=== PATIENT | male | born 1960 | race African-American/Black ===

== ENCOUNTER 2017-02-12 23:53 | Emergency (ER) | payer OTHER ==
[2017-02-12 23:58] VITALS: TEMP 98.5; BMI 25.7
--- NOTE | 2017-02-13 01:09 | PDOC ---
History of Present Illness - General History Source: Patient Exam Limitations: No Limitations - History of Present Illness Initial Comments: 02/13/17 01:29 EST The patient is a 56-year-old male, with a significant past medical history of diabetes (on Metformin), who presents to the ED with 3 days of pain and redness to left third digit and pain in his right shoulder and arm. He denies any recent trauma to his finger or arm. The pain in the finger and arm is worsened with movement. On exam patient states that the pain in his right arm radiates across his chest. He is also complaining of diarrhea and cough. The patient denies any fever, chills, nausea, vomiting, or abdominal pain. <Manjula Johns - Last Filed: 02/13/17 01:29 EST> <Padmini Gtz - Last Filed: 02/13/17 01:42 EST> <Jenny Almaguer - Last Filed: 02/14/17 01:16> - General Chief Complaint: Respiratory Stated Complaint: PAIN Time Seen by Provider: 02/13/17 01:08 EST Past History <Manjula Johns - Last Filed: 02/13/17 01:29 EST> - Past Medical History COPD: No Diabetes: Yes - Suicide/Smoking/Psychosocial Hx Smoking History: Current some day smoker Have you smoked in the past 12 months: Yes Number of Cigarettes Smoked Daily: 1 If you are a former smoker, when did you quit?: 2 WKS Information on smoking cessation initiated: No Hx Alcohol Use: No Drug/Substance Use Hx: No Substance Use Type: None <Padmini Gtz - Last Filed: 02/13/17 01:42 EST> <Jenny Almaguer - Last Filed: 02/14/17 01:16> - Past Medical History Allergies/Adverse Reactions: Allergies Allergy/AdvReac Type Severity Reaction Status Date / Time No Known Allergies Allergy Verified 02/12/17 23:58 Home Medications: Ambulatory Orders Metformin HCl 500 mg PO BID #30 tablet 04/14/15 Aspirin [ASA -] 81 mg PO DAILY 02/13/17 Atorvastatin Ca [Lipitor] 0 mg PO HS 02/13/17 Clindamycin [Cleocin -] 300 mg PO Q6HPO #28 capsule 02/13/17 Glipizide 0 mg PO DAILY 02/13/17 Review of Systems - Review of Systems Able to Perform ROS?: Yes Comments:: 02/13/17 01:30 EST GENERAL/CONSTITUTIONAL: No fever or chills. No weakness. HEAD, EYES, EARS, NOSE AND THROAT: No change in vision. No ear pain or discharge. No sore throat. CARDIOVASCULAR: (+)chest pain No shortness of breath. RESPIRATORY: (+)cough. No wheezing, or hemoptysis. GASTROINTESTINAL: (+)Diarrhea. No nausea, vomiting, or constipation. GENITOURINARY: No dysuria, frequency, or change in urination. MUSCULOSKELETAL: Pain in left 3rd digit, pain in left arm. No neck or back pain. SKIN: No rash NEUROLOGIC: No headache, vertigo, loss of consciousness, or change in strength/ sensation. ENDOCRINE: No increased thirst. No abnormal weight change. HEMATOLOGIC/LYMPHATIC: No anemia, easy bleeding, or history of blood clots. ALLERGIC/IMMUNOLOGIC: No hives or skin allergy. <Manjula Johns - Last Filed: 02/13/17 01:29 EST> *Physical Exam - Vital Signs Last Vital Signs Temp Pulse Resp BP Pulse Ox 98.5 F 103 H 20 137/87 99 02/12/17 23:55 02/12/17 23:55 02/12/17 23:55 02/12/17 23:55 02/12/17 23:55 - Physical Exam Comments: 02/13/17 01:31 EST GENERAL: Awake, alert, and fully oriented, in no acute distress HEAD: No signs of trauma EYES: PERRLA, EOMI, sclera anicteric, conjunctiva clear ENT: Auricles normal inspection, hearing grossly normal, nares patent, oropharynx clear without exudates. Moist mucosa NECK: Normal ROM, supple, no lymphadenopathy, JVD, or masses LUNGS: Breath sounds equal, clear to auscultation bilaterally. No wheezes, and no crackles HEART: Regular rate and rhythm, normal S1 and S2, no murmurs, rubs or gallops ABDOMEN: Soft, nontender, normoactive bowel sounds. No guarding, no rebound. No masses EXTREMITIES: Normal range of motion. No clubbing or cyanosis. No cords. NEUROLOGICAL: Cranial nerves II through XII grossly intact. Normal speech, normal gait SKIN: (+)Small amount of redness of DIP joint of left 3rd digit. Warm, Dry, normal turgor. <Manjula Johns - Last Filed: 02/13/17 01:29 EST> - Vital Signs Last Vital Signs Temp Pulse Resp BP Pulse Ox 98.5 F 103 H 20 137/87 99 02/12/17 23:55 02/12/17 23:55 02/12/17 23:55 02/12/17 23:55 02/12/17 23:55 <Padmini Gtz - Last Filed: 02/13/17 01:42 EST> - Vital Signs Last Vital Signs Temp Pulse Resp BP Pulse Ox 98.5 F 103 H 20 137/87 99 02/12/17 23:55 02/12/17 23:55 02/12/17 23:55 02/12/17 23:55 02/12/17 23:55 <Jenny Almaguer - Last Filed: 02/14/17 01:16> ED Treatment Course - LABORATORY CBC & Chemistry Diagram: 02/13/17 01:50 EST 02/13/17 01:50 EST - ADDITIONAL ORDERS Additional order review: Laboratory Results 02/13/17 01:50 EST Sodium 132 L Potassium 4.7 Chloride 97 L Carbon Dioxide 26 Anion Gap 9 BUN 17 D Creatinine 1.4 H Creat Clearance w eGFR 52.81 Random Glucose 451 H* Calcium 8.8 Total Bilirubin 0.3 D AST 20 D ALT 71 D Alkaline Phosphatase 121 H Creatine Kinase 111 Troponin I 0.04 Total Protein 7.3 Albumin 3.4 02/13/17 01:50 EST RBC 4.47 MCV 88.3 MCHC 32.6 RDW 12.9 MPV 8.7 Neutrophils % 74.1 Lymphocytes % 17.2 D Monocytes % 7.6 Eosinophils % 0.8 D Basophils % 0.3 - Medications Given in the ED: ED Medications Discontinued Medications Generic Name Dose Route Start Last Admin Trade Name Freq PRN Reason Stop Dose Admin Clindamycin Phosphate 50 mls @ 100 mls/hr 02/13/17 01:57 EST 02/13/17 02:19 Cleocin 600 Mg Premix Ivpb - IVPB 02/13/17 02:26 100 mls/hr ONCE ONE Administration Insulin Human Regular 10 units 02/13/17 03:07 02/13/17 03:25 Novolin R Vial *For Ivpush Or Iv Drip Only* IVPUSH 02/13/17 03:08 10 units ONCE ONE Administration Ketorolac Tromethamine 60 mg 02/13/17 01:19 EST 02/13/17 01:52 EST Toradol Injection - IM 02/13/17 01:20 EST 60 mg ONCE ONE Administration Sodium Chloride 1,000 ml 02/13/17 03:07 02/13/17 03:20 Normal Saline - IV 02/13/17 03:08 1,000 ml ONCE ONE Administration <Jenny Almaguer - Last Filed: 02/14/17 01:16> Medical Decision Making - Medical Decision Making 02/13/17 01:42 EST Pt presents to the ED complaining of pain and discomfort to his L 3rd digit, distal to the DIP. Very small area of induration without fluctuance seen on exam. Also complaining of two days of constant, diffuse pain across both shoulders that is worse with movement of the arms. Denies shortness of breath. History of DM. On exam, patient has full ROM of the affected digit and both shoulders, with very small area of induration on the finger. May represent small area of cellulitis. Given history of DM, will treat with antibiotics. Shoulder pain is unlikely to be infectious, patient denies history of trauma, and is extremely atypical for cardiac disease. EKG is normal. Will check cardiac enzymes to rule out NE. Will likely discharge home with PO antibiotics for cellulitis if labs so no evidence of serious infection. <Padmini Gtz - Last Filed: 02/13/17 01:42 EST> - Medical Decision Making 02/14/17 01:15 Pt signed out to AM attending. Though we hydrated the patient and provided him with a dose of IV clinda and insulin to take care of his FS of 425+, pt still hadn't had his XRAY finger, so he was signed out to the day ER doctor. <Jenny Almaguer - Last Filed: 02/14/17 01:16> *DC/Admit/Observation/Transfer - Attestations Scribe Attestion: 02/13/17 01:33 EST Documentation prepared by Manjula Johns, acting as medical record administrator for Padmini Gtz MD. <Manjula Johns - Last Filed: 02/13/17 01:29 EST> <Padmini Gtz - Last Filed: 02/13/17 01:42 EST> - Discharge Dispostion Admit: No <Jenny Almaguer - Last Filed: 02/14/17 01:16> Diagnosis at time of Disposition: Cellulitis, finger - Discharge Dispostion Disposition: HOME Condition at time of disposition: Stable - Prescriptions Prescriptions: Clindamycin [Cleocin -] 300 mg PO Q6HPO #28 capsule - Referrals Referrals: Jodi Betancourt MD [Primary Care Provider] - - Patient Instructions Printed Discharge Instructions: Cellulitis Additional Instructions: take clindamycin as prescribed. follow up with your regular doctor. return for any problems or concerns. you should follow up with your primary doctor regarding your blood sugars as they were elevated today.
[2017-02-13] MEDS ORDERED: KETOROLAC TROMETHAMINE 60 MG/2 ML VIAL IM ONE (01:19)
[2017-02-13] MEDS ORDERED: KETOROLAC TROMETHAMINE 60 MG/2 ML VIAL ONE (01:36)
[2017-02-13] MEDS ORDERED: CLINDAMYCIN 600MG PREMIX IVPB 50 ML IVPB ONE ×2 (01:57→02:13)
[2017-02-13 02:00] LABS: BASOPHIL 0.3 % (0-2.0); EOSINOPHIL 0.8 % (0-4.5); MCH 28.8 pg (25.7-33.7); MCHC 32.6 g/dl (32.0-35.9); MEAN CELL VOLUME 88.3 fl (80-96); MEAN PLT VOLUME 8.7 fl (7.5-11.1); NEUTROPHILS 74.1 % (42.8-82.8); PLATELET COUNT 255 K/MM3 (134-434); RDW 12.9 % (11.9-15.9); WHITE BLOOD COUNT 9.5 K/mm3 (4.0-10.0)
[2017-02-13 02:24] LABS: ALBUMIN 3.4 g/dl (3.4-5.0); ANION GAP 9 (8-16); BILIRUBIN,TOTAL 0.3 mg/dL (0.2-1.0); CALCIUM 8.8 mg/dL (8.5-10.1); CO2 26 mmol/L (21-32); CPK 111 IU/L (39-308); CREATININE 1.4 mg/dL (0.7-1.3); SGOT/AST 20 U/L (15-37); SGPT/ALT 71 U/L (12-78); TOT PROT 7.3 g/dl (6.4-8.2)
[2017-02-13 02:26] LABS: ALK PHOS 121 U/L (45-117); TROPONIN I 0.04 ng/ml (0.00-0.05)
[2017-02-13 02:31] LABS: GLUCOSE,RANDOM 451 mg/dL (74-106)
[2017-02-13] MEDS ORDERED: INSULIN REGULAR HUMAN 100 UNITS/ML *VIAL IVPUSH ONE (03:07)
[2017-02-13] MEDS ORDERED: SODIUM CHLORIDE 0.9% 500 ML INFUS.BAG IV ONE (03:07)
[2017-02-13] MEDS ORDERED: INSULIN REGULAR HUMAN 100 UNITS/ML *VIAL ONE (03:22)
--- NOTE | 2017-02-13 10:02 | PDOC ---
*Physical Exam - Vital Signs Last Vital Signs Temp Pulse Resp BP Pulse Ox 98.5 F 90 18 126/54 99 02/13/17 08:48 02/13/17 08:48 02/13/17 08:48 02/13/17 08:48 02/13/17 08:48 - Physical Exam General Appearance: Yes: Nourished ED Treatment Course - LABORATORY CBC & Chemistry Diagram: 02/13/17 01:50 EST 02/13/17 01:50 EST - ADDITIONAL ORDERS Additional order review: Laboratory Results 02/13/17 01:50 EST Sodium 132 L Potassium 4.7 Chloride 97 L Carbon Dioxide 26 Anion Gap 9 BUN 17 D Creatinine 1.4 H Creat Clearance w eGFR 52.81 Random Glucose 451 H* Calcium 8.8 Total Bilirubin 0.3 D AST 20 D ALT 71 D Alkaline Phosphatase 121 H Creatine Kinase 111 Troponin I 0.04 Total Protein 7.3 Albumin 3.4 02/13/17 01:50 EST RBC 4.47 MCV 88.3 MCHC 32.6 RDW 12.9 MPV 8.7 Neutrophils % 74.1 Lymphocytes % 17.2 D Monocytes % 7.6 Eosinophils % 0.8 D Basophils % 0.3 - RADIOLOGY Radiology Studies Ordered: Category Date Time Status SHOULDER-RIGHT [RAD] Stat Radiology 02/13/17 08:34 Completed - Medications Given in the ED: ED Medications Discontinued Medications Generic Name Dose Route Start Last Admin Trade Name Freq PRN Reason Stop Dose Admin Clindamycin Phosphate 50 mls @ 100 mls/hr 02/13/17 01:57 EST 02/13/17 02:19 Cleocin 600 Mg Premix Ivpb - IVPB 02/13/17 02:26 100 mls/hr ONCE ONE Administration Insulin Human Regular 10 units 02/13/17 03:07 02/13/17 03:25 Novolin R Vial *For Ivpush Or Iv Drip Only* IVPUSH 02/13/17 03:08 10 units ONCE ONE Administration Ketorolac Tromethamine 60 mg 02/13/17 01:19 EST 02/13/17 01:52 EST Toradol Injection - IM 02/13/17 01:20 EST 60 mg ONCE ONE Administration Sodium Chloride 1,000 ml 02/13/17 03:07 02/13/17 03:20 Normal Saline - IV 02/13/17 03:08 1,000 ml ONCE ONE Administration Medical Decision Making - Medical Decision Making 02/13/17 10:00 pt signed out to me. awaiting xray finger, shoulder. sugars elevated 450. was given insulin prior to my shift. improved to 200's. dc home. xray unremarkable. *DC/Admit/Observation/Transfer Diagnosis at time of Disposition: Cellulitis, finger - Discharge Dispostion Disposition: HOME Condition at time of disposition: Stable - Prescriptions Prescriptions: Clindamycin [Cleocin -] 300 mg PO Q6HPO #28 capsule - Referrals Referrals: Jodi Betancourt MD [Primary Care Provider] - - Patient Instructions Printed Discharge Instructions: Cellulitis Additional Instructions: take clindamycin as prescribed. follow up with your regular doctor. return for any problems or concerns. you should follow up with your primary doctor regarding your blood sugars as they were elevated today. - Post Discharge Activity
[2017-02-13 10:19] VITALS: BP 118/74; PULSE 85
--- NOTE | 2017-02-16 14:05 | EKG ---
Test Reason : Blood Pressure : / mmHG Vent. Rate : 092 BPM Atrial Rate : 092 BPM P-R Int : 170 ms QRS Dur : 092 ms QT Int : 356 ms P-R-T Axes : 064 -14 075 degrees QTc Int : 440 ms NORMAL SINUS RHYTHM POSSIBLE LEFT ATRIAL ENLARGEMENT T WAVE ABNORMALITY, CONSIDER LATERAL ISCHEMIA ABNORMAL ECG NO PREVIOUS ECGS AVAILABLE Confirmed by ABBE MIRANDA MD ([id number]) on 02/16/2017 2:04:47 PM Referred By: Confirmed By:ABBE MIRANDA MD
== END 2017-02-13 10:23 | disposition home or self-care (01) ==
LOC: JER 23:53
PROC: 3E0233Z Introduction of Anti-inflammatory into Muscle, Percutaneous Approach (ICD-10-PCS; principal; 2017-02-12)
PROC: 3E03329 Introduction of Other Anti-infective into Peripheral Vein, Percutaneous Approach (ICD-10-PCS; 2017-02-12)
PROC: 3E033VG Introduction of Insulin into Peripheral Vein, Percutaneous Approach (ICD-10-PCS; 2017-02-12)
DX: L03.012 Cellulitis of left finger (principal); M25.512 Pain in left shoulder; R05 Cough; E11.9 Type 2 diabetes mellitus without complications; Z79.84 Long term (current) use of oral hypoglycemic drugs
CPT/HCPCS: 36415; 73030-TC-RT; 73140-TC-LT; 80053; 82550; 84484; 85025; 93005; 93010; 96365; 96372; 96375; 99285-25

== ENCOUNTER 2017-04-04 16:11 | Emergency (ER) | payer OTHER ==
[2017-04-04 16:15] VITALS: BP 151/88; PULSE 91; TEMP 98.7
--- NOTE | 2017-04-04 17:09 | PDOC ---
History of Present Illness <Danielle Davenport - Last Filed: 04/04/17 18:33> - General History Source: Patient Exam Limitations: No Limitations - History of Present Illness Initial Comments: 04/04/17 20:25 The patient is a 56 year old male with history of diabetes who presents to the ED complaining of several months of chronic right lower back pain. He states his pain is intermittent, radiating to the groin, improved with 100 mg of Ibuprofen. He denies any dysuria or hematuria. He denies fever or chills. He states he was worked up by his PCP who found proteinuria on his UA. Came in today because he wanted a diagnosis. Denies CP, SOB, abd pain, N/V/D, focal weakness or numbness, urine/stool incontinence or retention. <Leela Duff - Last Filed: 04/04/17 20:28> - General Chief Complaint: Pain, Acute Stated Complaint: PAIN, ACUTE Time Seen by Provider: 04/04/17 16:59 Past History - Past Medical History COPD: No Diabetes: Yes - Suicide/Smoking/Psychosocial Hx Smoking History: Current some day smoker Have you smoked in the past 12 months: Yes Number of Cigarettes Smoked Daily: 1 If you are a former smoker, when did you quit?: 2 WKS Information on smoking cessation initiated: No Hx Alcohol Use: No Drug/Substance Use Hx: No Substance Use Type: None <Danielle Davenport - Last Filed: 04/04/17 18:33> <Leela Duff - Last Filed: 04/04/17 20:28> - Past Medical History Allergies/Adverse Reactions: Allergies Allergy/AdvReac Type Severity Reaction Status Date / Time No Known Allergies Allergy Verified 04/04/17 18:34 Home Medications: Ambulatory Orders Metformin HCl 500 mg PO BID #30 tablet 04/14/15 Aspirin [ASA -] 81 mg PO DAILY 02/13/17 Atorvastatin Ca [Lipitor] 10 mg PO HS 02/13/17 Glipizide 5 mg PO DAILY 02/13/17 Cyclobenzaprine HCl [Flexeril 10 mg] 10 mg PO BID PRN #28 tablet 04/04/17 Lisinopril 10 mg PO DAILY 04/04/17 Naproxen 500 mg PO BID #28 tablet 04/04/17 Review of Systems - Review of Systems Able to Perform ROS?: Yes Comments:: 04/04/17 20:27 GENERAL/CONSTITUTIONAL: No fever or chills. No weakness. HEAD, EYES, EARS, NOSE AND THROAT: No change in vision. No ear pain or discharge. No sore throat. GASTROINTESTINAL: No nausea, vomiting, diarrhea or constipation. GENITOURINARY: +Right flank pain x several months. No dysuria, frequency, or change in urination. CARDIOVASCULAR: No chest pain or shortness of breath. RESPIRATORY: No cough, wheezing, or hemoptysis. MUSCULOSKELETAL: No joint or muscle swelling or pain. No neck or back pain. SKIN: No rash NEUROLOGIC: No headache, vertigo, loss of consciousness, or change in strength/ sensation. ENDOCRINE: No increased thirst. No abnormal weight change. HEMATOLOGIC/LYMPHATIC: No anemia, easy bleeding, or history of blood clots. ALLERGIC/IMMUNOLOGIC: No hives or skin allergy. <Leela Duff - Last Filed: 04/04/17 20:28> *Physical Exam - Vital Signs Last Vital Signs Temp Pulse Resp BP Pulse Ox 98.7 F 91 H 18 151/88 99 04/04/17 16:13 04/04/17 16:13 04/04/17 16:13 04/04/17 16:13 04/04/17 16:13 <Danielle Davenport - Last Filed: 04/04/17 18:33> - Vital Signs Last Vital Signs Temp Pulse Resp BP Pulse Ox 98.7 F 91 H 18 151/88 99 04/04/17 16:13 04/04/17 16:13 04/04/17 16:13 04/04/17 16:13 04/04/17 16:13 - Physical Exam Comments: 04/04/17 20:27 GENERAL: Awake, alert, and fully oriented, in no acute distress HEAD: No signs of trauma EYES: PERRLA, EOMI, sclera anicteric, conjunctiva clear ENT: Auricles normal inspection, hearing grossly normal, nares patent, oropharynx clear without exudates. Moist mucosa NECK: Normal ROM, supple, no lymphadenopathy, JVD, or masses LUNGS: Breath sounds equal, clear to auscultation bilaterally. No wheezes, and no crackles HEART: Regular rate and rhythm, normal S1 and S2, no murmurs, rubs or gallops ABDOMEN: Soft, nontender, normoactive bowel sounds. No guarding, no rebound. No masses BACK: Right iliac fossa ttp, no midline cervical, thoracic, lumbar ttp EXTREMITIES: Normal range of motion, no edema. No clubbing or cyanosis. No cords, erythema, or tenderness BACK: No midline spinal tenderness in cervical/thoracic/lumbar region NEUROLOGICAL: Normal speech, cranial nerves intact, negative pronator drift, 5/ 5 strength in all 4 extremities, normal sensation to light touch in all 4 extremities, normal cerebellar exam, normal gait, normal reflexes and tone SKIN: Warm, Dry, normal turgor, no rashes or lesions noted. <Leeal Duff - Last Filed: 04/04/17 20:28> Medical Decision Making - Medical Decision Making 04/04/17 17:01 56yo M hx DM p/w 5 months of R flank pain. Pain is worse with certain movements. Pt presented today because he wanted to get to the bottom of it. Vitals wnl. Exam with R sided iliac crest ttp. Pain is likely musculoskeletal but ddx also includes renal colic vs colitis. Will obtain labs, UA, and CTAP. 04/04/17 17:37 Nurse entered to draw labs on patient, nurse ran out calling for security. Pt physically aggressive towards nurse, came out of the room and making threats to nurse stating "I will find you." Security at the bedside. PD called. Medically, pt does not appear to have life threatining condition at this time. Presenting symptoms have been present for months, pt here for a diagnosis. Pt has a PMD he has seen for these symptoms and can follow up with. Since there is no life threatening condition, and pt has made verbal and physical threats to the nurse, pt to be escorted out by security and PD. <Danielle Davenport - Last Filed: 04/04/17 18:33> *DC/Admit/Observation/Transfer - Discharge Dispostion Admit: No - Attestations Physician Attestion: 04/04/17 18:34 I, Dr. Danielle Davenport MD, attest that this document has been prepared under my direction and personally reviewed by me in its entirety. I further attest, that it accurately reflects all work, treatment, procedures and medical decision -making performed by me. <Danielle Davenport - Last Filed: 04/04/17 18:33> - Attestations Scribe Attestion: 04/04/17 20:28 Documentation prepared by Leela Duff, acting as medical office scheduler for Danielle Davenport MD. <Leela Duff - Last Filed: 04/04/17 20:28> Diagnosis at time of Disposition: Back pain Qualifiers: Back pain location: low back pain Chronicity: chronic Back pain laterality: right Sciatica presence: with sciatica Sciatica laterality: sciatica of right side Qualified Code(s): M54.41 - Lumbago with sciatica, right side - Discharge Dispostion Disposition: HOME Condition at time of disposition: Stable - Referrals Referrals: Jodi Betancourt MD [Primary Care Provider] - - Patient Instructions - Post Discharge Activity
== END 2017-04-04 17:30 | disposition home or self-care (01) ==
LOC: JER 16:11
DX: M54.41 Lumbago with sciatica, right side (principal); E11.9 Type 2 diabetes mellitus without complications; F17.210 Nicotine dependence, cigarettes, uncomplicated; Z79.84 Long term (current) use of oral hypoglycemic drugs
CPT/HCPCS: 99281-25

== ENCOUNTER 2017-04-04 18:19 | Emergency (ER) | payer OTHER ==
--- NOTE | 2017-04-04 18:23 | PDOC ---
History of Present Illness <Jammie Alonso - Last Filed: 04/04/17 19:02> - General History Source: Patient Exam Limitations: No Limitations - History of Present Illness Initial Comments: 04/04/17 19:37 The patient is a 56-year-old male, with a significant past medical history of diabetes (on Metformin), who presents to the ED with a few months of right- sided lower back pain radiating down his right leg and into his groin area. He was first seen at [facility] and had to be escorted out by PD for threatening a nurse. Pt reports to the ED today because his pain progressively worsened in the last few days. He saw his PCP 2 weeks ago and had a workup done ; protein was noted in his urine. He reports having diabetic neuropathy in both lower extremities but this is not new. The patient denies any fever, chills, nausea, vomiting, diarrhea, or abdominal pain. He denies any dysuria, hematuria, frequency, urgency, or hesitancy. <Manjula Johns - Last Filed: 04/04/17 19:45> - General Chief Complaint: Back Pain Stated Complaint: RIGHT LOWER BACK PAIN RADIATES DOWN RIGHT LEG Time Seen by Provider: 04/04/17 18:22 Past History - Past Medical History COPD: No Diabetes: Yes - Suicide/Smoking/Psychosocial Hx Smoking History: Current some day smoker Have you smoked in the past 12 months: Yes Number of Cigarettes Smoked Daily: 1 If you are a former smoker, when did you quit?: 2 WKS Hx Alcohol Use: No Drug/Substance Use Hx: No Substance Use Type: None <Jammie Alonso - Last Filed: 04/04/17 19:02> <Manjula Johns - Last Filed: 04/04/17 19:45> - Past Medical History Allergies/Adverse Reactions: Allergies Allergy/AdvReac Type Severity Reaction Status Date / Time No Known Allergies Allergy Verified 04/04/17 18:34 Home Medications: Ambulatory Orders Metformin HCl 500 mg PO BID #30 tablet 04/14/15 Aspirin [ASA -] 81 mg PO DAILY 02/13/17 Atorvastatin Ca [Lipitor] 10 mg PO HS 02/13/17 Glipizide 5 mg PO DAILY 02/13/17 Lisinopril 10 mg PO DAILY 04/04/17 Review of Systems - Review of Systems Able to Perform ROS?: Yes Comments:: 04/04/17 19:37 GENERAL/CONSTITUTIONAL: No fever or chills. No weakness. HEAD, EYES, EARS, NOSE AND THROAT: No change in vision. No ear pain or discharge. No sore throat. CARDIOVASCULAR: No chest pain or shortness of breath. RESPIRATORY: No cough, wheezing, or hemoptysis. GASTROINTESTINAL: No nausea, vomiting, diarrhea or constipation. GENITOURINARY: No dysuria, frequency, or change in urination. MUSCULOSKELETAL: (+)right-sided lower back pain with radiation down right leg. No joint swelling or pain. No neck pain. SKIN: No rash NEUROLOGIC: No headache, vertigo, loss of consciousness, or change in strength/ sensation. ENDOCRINE: No increased thirst. No abnormal weight change. HEMATOLOGIC/LYMPHATIC: No anemia, easy bleeding, or history of blood clots. ALLERGIC/IMMUNOLOGIC: No hives or skin allergy. <Manjula Johns - Last Filed: 04/04/17 19:45> *Physical Exam - Vital Signs Last Vital Signs Temp Pulse Resp BP Pulse Ox 98.9 F 76 16 153/94 100 04/04/17 18:22 04/04/17 18:22 04/04/17 18:22 04/04/17 18:22 04/04/17 18:22 - Physical Exam Comments: 04/04/17 19:39 GENERAL: Awake, alert, and fully oriented, in no acute distress HEAD: No signs of trauma EYES: PERRLA, EOMI, sclera anicteric, conjunctiva clear ENT: Auricles normal inspection, hearing grossly normal, nares patent, oropharynx clear without exudates. Moist mucosa NECK: Normal ROM, supple, no lymphadenopathy, JVD, or masses LUNGS: Breath sounds equal, clear to auscultation bilaterally. No wheezes, and no crackles HEART: Regular rate and rhythm, normal S1 and S2, no murmurs, rubs or gallops ABDOMEN: Soft, nontender, normoactive bowel sounds. No guarding, no rebound. No masses MSK: (+)Paraspinal tenderness on right side at lower lumbar spine. Acute pinpoint onset. No step-off EXTREMITIES: (+)Positive leg raise at the right. Normal range of motion, no edema. No clubbing or cyanosis. No cords, erythema, or tenderness. NEUROLOGICAL: Cranial nerves II through XII grossly intact. Normal speech, normal gait. Sensation is intact. No signs of cauda equina. SKIN: Warm, Dry, normal turgor, no rashes or lesions noted <Manjula Johns - Last Filed: 04/04/17 19:45> ED Treatment Course - ADDITIONAL ORDERS Additional order review: Laboratory Results 04/04/17 19:04 Urine Color Dk yellow Urine Appearance Clear Urine pH 5.0 Ur Specific [place] >= 1.030 H Urine Protein 2+ H Urine Glucose (UA) 2+ H Urine Ketones Trace Urine Blood Negative Urine Nitrite Negative Urine Bilirubin Negative Urine Urobilinogen 0.2 Ur Leukocyte Esterase Negative Urine RBC 5-10 Urine WBC 2-5 Ur Epithelial Cells Few Amorphous Urates Few Urine Bacteria Few - Medications Given in the ED: ED Medications Discontinued Medications Generic Name Dose Route Start Last Admin Trade Name Freq PRN Reason Stop Dose Admin Cyclobenzaprine HCl 10 mg 04/04/17 19:01 04/04/17 19:11 Flexeril - PO 04/04/17 19:02 10 mg ONCE ONE Administration Ketorolac Tromethamine 60 mg 04/04/17 19:01 04/04/17 19:11 Toradol Injection - IM 04/04/17 19:02 60 mg ONCE ONE Administration <Manjula Johns - Last Filed: 04/04/17 19:45> Medical Decision Making - Medical Decision Making 04/04/17 19:02 a/p: 56yo male with lbp -hx of proteinuria -hx of DM -suspect MSK pain with paraspinal ttp and +straight leg raise -no signs of caude equina -will check an xray will give toradol and flexeril and reassess <Jammie Alonso - Last Filed: 04/04/17 19:02> *DC/Admit/Observation/Transfer - Attestations Physician Attestion: 04/04/17 19:03 I, Dr. Jammie Alonso, DO, attest that this document has been prepared under my direction and personally reviewed by me in its entirety. I further attest, that it accurately reflects all work, treatment, procedures and medical decision -making performed by me. <Jammie Alonso - Last Filed: 04/04/17 19:02> - Attestations Scribe Attestion: 04/04/17 19:44 Documentation prepared by Manjula Johns, acting as medical administrator for Annamaria Prabhakar MD. <Manjula Johns - Last Filed: 04/04/17 19:45> Diagnosis at time of Disposition: Back pain - Discharge Dispostion Condition at time of disposition: Stable
[2017-04-04] MEDS ORDERED: CYCLOBENZAPRINE HCL 10 MG TABLET (FP) PO ONE (19:01)
[2017-04-04] MEDS ORDERED: KETOROLAC TROMETHAMINE 60 MG/2 ML VIAL IM ONE (19:01)
[2017-04-04 19:04] VITALS: BP 153/94; PULSE 76; TEMP 98.9; BMI 25.7
[2017-04-04] MEDS ORDERED: CYCLOBENZAPRINE HCL 10 MG TABLET (FP) ONE (19:07)
[2017-04-04] MEDS ORDERED: KETOROLAC TROMETHAMINE 60 MG/2 ML VIAL ONE (19:07)
[2017-04-04 19:17] LABS: URINE APPEARANCE Clear; URINE BILIRUBIN Negative (NEGATIVE); URINE BLOOD Negative (NEGATIVE); URINE GLUCOSE (UA) 2+ (NEGATIVE); URINE KETONE Trace (NEGATIVE); URINE LEUK ESTERASE Negative (NEGATIVE); URINE NITRITE Negative (NEGATIVE); URINE UROBILINOGEN 0.2 (0.2-1.0)
[2017-04-04 19:18] LABS: URINE COLOR DK YELLOW; URINE PROTEIN 2+ (NEGATIVE)
[2017-04-04 19:32] LABS: URINE BACTERIA FEW /hpf (NEGATIVE)
--- NOTE | 2017-04-04 20:02 | PDOC ---
*Physical Exam - Vital Signs Last Vital Signs Temp Pulse Resp BP Pulse Ox 98.9 F 76 16 153/94 100 04/04/17 18:22 04/04/17 18:22 04/04/17 18:22 04/04/17 18:22 04/04/17 18:22 ED Treatment Course - ADDITIONAL ORDERS Additional order review: Laboratory Results 04/04/17 19:04 Urine Color Dk yellow Urine Appearance Clear Urine pH 5.0 Ur Specific Dilliner >= 1.030 H Urine Protein 2+ H Urine Glucose (UA) 2+ H Urine Ketones Trace Urine Blood Negative Urine Nitrite Negative Urine Bilirubin Negative Urine Urobilinogen 0.2 Ur Leukocyte Esterase Negative Urine RBC 5-10 Urine WBC 2-5 Ur Epithelial Cells Few Amorphous Urates Few Urine Bacteria Few - Medications Given in the ED: ED Medications Discontinued Medications Generic Name Dose Route Start Last Admin Trade Name Ramses PRN Reason Stop Dose Admin Cyclobenzaprine HCl 10 mg 04/04/17 19:01 04/04/17 19:11 Flexeril - PO 04/04/17 19:02 10 mg ONCE ONE Administration Ketorolac Tromethamine 60 mg 04/04/17 19:01 04/04/17 19:11 Toradol Injection - IM 04/04/17 19:02 60 mg ONCE ONE Administration Progress Note - Progress Note Progress Note: This is a 56-year-old male whose care was transferred to [facility] at [address] Alonso. Patient has a long history of chronic low back pain. Patient comes in today complaining of acute exacerbation of his chronic low back pain radiating down his right leg. Patient has seen a doctor in the past does have a neurologist and an orthopedist and has an appointment next week for follow-up. X-rays were sent and patient was given Toradol and Flexeril. Lumbar sacral x-rays no acute fracture noted acute pathology Assessment and plan: This is a 56-year-old male with low back pain/sciatica. Patient feels better after medications. Patient was given results of his x-ray and told to keep his appointment with his doctors. In addition patient asked for a orthopedist closer so was given our orthopedist here at the hospital who he can follow-up with Prescriptions for Naprosyn and Flexeril were sent to patient's pharmacy *DC/Admit/Observation/Transfer Diagnosis at time of Disposition: Back pain Qualifiers: Back pain location: low back pain Chronicity: chronic Back pain laterality: right Sciatica presence: with sciatica Sciatica laterality: sciatica of right side Qualified Code(s): M54.41 - Lumbago with sciatica, right side - Discharge Dispostion Disposition: HOME Condition at time of disposition: Stable - Prescriptions Prescriptions: Cyclobenzaprine HCl [Flexeril 10 mg] 10 mg PO BID PRN #28 tablet PRN Reason: Back Pain Naproxen 500 mg PO BID #28 tablet - Referrals - Patient Instructions Additional Instructions: For the pain take Naprosyn 1 tablet twice a day with food don't take on an empty stomach. In addition to that for muscle spasm take Flexeril one tablet twice a day it will make you drowsy so don't try to work or do anything that requires your concentration while you take it. Follow-up with an orthopedist if he needed an orthopedist call Dr. Noonan at [phone] tomorrow morning for an appointment. Return to the emergency department immediately with ANY new, persistent or worsening symptoms. Continue any medications as previously prescribed by your physician. You should follow up with your primary doctor as soon as possible regarding today's emergency department visit. . Please make sure your doctor reviews the results of your emergency evaluation. Thank you for coming to the Emergency Department today for your care. It was a pleasure to see you today. Please note that your evaluation is INCOMPLETE until you follow-up with your doctor. - Post Discharge Activity
== END 2017-04-04 20:08 | disposition home or self-care (01) ==
LOC: FER 18:19
PROC: 3E0233Z Introduction of Anti-inflammatory into Muscle, Percutaneous Approach (ICD-10-PCS; principal; 2017-04-04)
DX: M54.9 Dorsalgia, unspecified (principal); F17.210 Nicotine dependence, cigarettes, uncomplicated; E11.9 Type 2 diabetes mellitus without complications; Z79.84 Long term (current) use of oral hypoglycemic drugs
CPT/HCPCS: 72100-TC; 81003; 81015; 99282-25

== ENCOUNTER 2017-05-02 20:44 | Emergency (ER) | payer OTHER ==
[2017-05-02 20:51] VITALS: BP 139/78; PULSE 98; TEMP 98; BMI 25.7
--- NOTE | 2017-05-02 21:05 | PDOC ---
History of Present Illness - General History Source: Patient Exam Limitations: No Limitations <JesusbonnyAnnamaria Copeland I - Last Filed: 05/02/17 21:34> - History of Present Illness Initial Comments: 05/02/17 21:41 56 y.o male with significant past medical history of NIDDM, HTN, and sciatica, who presents to the emergency room complaining of right sided lower back pain that radiates to his right groin and right posterior thigh. The patient states that the pain is worse at night when he is sleeping on his back. He notes that he has experienced this pain in the past for which he was given naproxen and flexeril that provided significant relief. He states that he never followed up with an orthopedist. Denies bladder or bowel changes. He denies urinary symptoms. Denies fever, chills, nausea, vomiting. PAST SURGICAL HISTORY: no significant history FAMILY HISTORY: no pertinent history SOCIAL HISTORY: Pt lives with family and is employed. MEDICATIONS: reviewed ALLERGIES: As per nursing notes Review of systems General: No fevers or chills, no weakness, no weight loss HEENT: No change in vision. No sore throat, No ear pain Cardiovascular: No chest pain or shortness of breath Respiratory:No cough, or wheezing. Gastrointestinal: No nausea, vomiting, diarrhea or constipation, No rectal bleeding Genitourinary: No dysuria, hematuria, or frequency Musculoskeletal: +right lower back pain that radiates to his groin and down the posterior thigh. Neurologic: No headache, vertigo, dizziness or loss of consciousness Psychiatric: No depression Skin: No rashes or easy bruising Endocrine: No increased thirst or abnormal weight change Allergic: No skin or latex allergy All other systems reviewed and normal Physical Exam GENERAL: The patient is awake, alert, and fully oriented, in no acute distress. HEAD: Normal with no signs of trauma. EYES: Pupils equal, round and reactive to light, extraocular movements intact, sclera anicteric, conjunctiva clear. BACK: There is moderate tenderness to palpation over the right sciatic notch with ttp over the right hip and upper leg area.There is no tenderness over the lumbar and sacral area. EXTREMITIES: Normal range of motion, no edema. NEUROLOGICAL: Normal speech, normal gait. PSYCH: Normal mood, normal affect. SKIN: Warm, Dry, normal turgor, no rashes or lesions noted. <Sharmaine Gaytan - Last Filed: 05/02/17 21:42> - General Chief Complaint: Back Pain Stated Complaint: BACK PAIN Time Seen by Provider: 05/02/17 21:05 Past History - Past Medical History COPD: No Diabetes: Yes HTN: Yes Hypercholesterolemia: Yes - Suicide/Smoking/Psychosocial Hx Smoking History: Current some day smoker Have you smoked in the past 12 months: Yes Number of Cigarettes Smoked Daily: 2 If you are a former smoker, when did you quit?: 2 WKS Information on smoking cessation initiated: Yes 'Breaking Loose' booklet given: 05/02/17 Hx Alcohol Use: No Drug/Substance Use Hx: No Substance Use Type: None <Annamaria Prabhakar I - Last Filed: 05/02/17 21:34> <Sharmaine Gaytan - Last Filed: 05/02/17 21:42> - Past Medical History Allergies/Adverse Reactions: Allergies Allergy/AdvReac Type Severity Reaction Status Date / Time No Known Allergies Allergy Verified 05/02/17 20:45 Home Medications: Ambulatory Orders Aspirin [ASA -] 81 mg PO DAILY 02/13/17 Atorvastatin Ca [Lipitor] 10 mg PO HS 02/13/17 Glipizide mg PO DAILY 02/13/17 Cyclobenzaprine HCl [Flexeril 10 mg] 10 mg PO BID PRN #28 tablet 04/04/17 Lisinopril 10 mg PO DAILY 04/04/17 Naproxen 500 mg PO BID #28 tablet 04/04/17 Enalapril Maleate [Vasotec -] 10 mg PO DAILY 05/02/17 Metformin HCl 1,000 mg PO BID 05/02/17 *Physical Exam - Vital Signs Last Vital Signs Temp Pulse Resp BP Pulse Ox 98 F 98 H 18 139/78 100 05/02/17 20:45 05/02/17 20:45 05/02/17 20:45 05/02/17 20:45 05/02/17 20:45 <Annamaria Prabhakar I - Last Filed: 05/02/17 21:34> - Vital Signs Last Vital Signs Temp Pulse Resp BP Pulse Ox 98 F 98 H 18 139/78 100 05/02/17 20:45 05/02/17 20:45 05/02/17 20:45 05/02/17 20:45 05/02/17 20:45 <Sharmaine Gaytan - Last Filed: 05/02/17 21:42> *DC/Admit/Observation/Transfer - Discharge Dispostion Admit: No <Annamaria Prabhakar I - Last Filed: 05/02/17 21:34> <Sharmaine Gaytan - Last Filed: 05/02/17 21:42> Diagnosis at time of Disposition: Sciatica of right side - Discharge Dispostion Condition at time of disposition: Stable - Patient Instructions Additional Instructions: Is important that you take an anti-inflammatory either take the Motrin or the Naprosyn but U do not need to take both.. In addition that take the Flexeril especially before bedtime which will help relax and sleep better. Make sure you sleep in the position that we discussed which was on your side with your hips flexed knees bent in a pillow between her legs this is the best position for sciatica and will give you the most relief. Put a pillow between behind her back so you don't roll over on your back as that will make the pain worse. Follow-up with an orthopedist Dr. Gallardo at [phone], call his office in the morning for an appointment. Return to the emergency department immediately with ANY new, persistent or worsening symptoms. Continue any medications as previously prescribed by your physician. You should follow up with your primary doctor as soon as possible regarding today's emergency department visit. . Please make sure your doctor reviews the results of your emergency evaluation. Thank you for coming to the Emergency Department today for your care. It was a pleasure to see you today. Please note that your evaluation is INCOMPLETE until you follow-up with your doctor.
[2017-05-02] MEDS ORDERED: KETOROLAC TROMETHAMINE 60 MG/2 ML VIAL IM ONE (21:35)
[2017-05-02] MEDS ORDERED: KETOROLAC TROMETHAMINE 60 MG/2 ML VIAL ONE (21:49)
== END 2017-05-02 21:54 | disposition home or self-care (01) ==
LOC: FER 20:44
PROC: 3E0233Z Introduction of Anti-inflammatory into Muscle, Percutaneous Approach (ICD-10-PCS; principal; 2017-05-02)
DX: M54.31 Sciatica, right side (principal); F17.210 Nicotine dependence, cigarettes, uncomplicated; E11.9 Type 2 diabetes mellitus without complications; I10 Essential (primary) hypertension; E78.00 Pure hypercholesterolemia, unspecified
CPT/HCPCS: 96372; 99281-25

== ENCOUNTER 2020-09-03 12:45 | Emergency (ER) | payer OTHER ==
[2020-09-03 13:05] VITALS: PULSE 78; BMI 27.1
[2020-09-03] MEDS ORDERED: SODIUM CHLORIDE 0.9% 500 ML INFUS.BAG IV ONE (13:56)
[2020-09-03 15:05] LABS: VENOUS BASE EXCESS 0.2 mmol/L (-2-2); VENOUS PCO2 51.2 mmHg (38-52); VENOUS PH 7.336 (7.310-7.410)
[2020-09-03 15:06] LABS: BASO % 1.5 % (0-2.0); EOS % 0.2 % (0-4.5); HEMOGLOBIN 12.1 GM/dL (11.7-16.9); LYMPH % 19.4 % (8-40); MCH 28.9 pg (25.7-33.7); MCHC 32.8 g/dl (32.0-35.9); MEAN PLT VOLUME 9.3 fl (7.5-11.1); MONO % 6.3 % (3.8-10.2); NEUT % 72.6 % (42.8-82.8); PLATELET COUNT 268 K/MM3 (134-434); RDW 13.4 % (11.9-15.9); WHITE BLOOD COUNT 9.1 K/mm3 (4.0-10.0)
[2020-09-03 15:09] LABS: URINE APPEARANCE CLEAR; URINE BILIRUBIN NEGATIVE (NEGATIVE); URINE COLOR YELLOW; URINE GLUCOSE (UA) 3+ (NEGATIVE); URINE KETONE NEGATIVE (NEGATIVE); URINE LEUK ESTERASE NEGATIVE (NEGATIVE); URINE NITRITE NEGATIVE (NEGATIVE); URINE PROTEIN NEGATIVE (NEGATIVE); URINE UROBILINOGEN 0.2 mg/dL (0.2-1.0)
[2020-09-03 15:26] LABS: CALCIUM 8.9 mg/dL (8.5-10.1)
[2020-09-03 15:27] LABS: ALBUMIN 3.7 g/dl (3.4-5.0); BLOOD UREA NITROGEN 20.8 mg/dL (7-18)
[2020-09-03 15:30] LABS: CREATININE 1.3 mg/dL (0.55-1.3)
[2020-09-03 15:32] LABS: BILIRUBIN,TOTAL 0.3 mg/dL (0.2-1); TOT PROT 7.5 g/dl (6.4-8.2)
[2020-09-03 17:05] VITALS: BP 151/81; TEMP 98.2
== END 2020-09-03 17:06 | disposition home or self-care (01) ==
LOC: JER 12:45
DX: R20.2 Paresthesia of skin (principal); R73.9 Hyperglycemia, unspecified
CPT/HCPCS: 36415; 70450-TC; 80053; 81003; 82010; 82803; 82962; 85025; 87086; 93005; 93010; 99285-25

== ENCOUNTER 2022-04-01 04:24 | Day surgery (SDC) | payer OTHER ==
[2022-03-29 16:12] VITALS: BMI 27.5
[2022-04-01 12:26] VITALS: TEMP 98
[2022-04-01 14:21] VITALS: BP 112/76; PULSE 68; RESP 18
== END 2022-04-01 14:15 | disposition home or self-care (01) ==
LOC: JASU-ENDO 04:24
PROVIDERS: ATTEND Internal Medicine Gastroenterology
PROC: 0DJD8ZZ Inspection of Lower Intestinal Tract, Via Natural or Artificial Opening Endoscopic (ICD-10-PCS; principal; 2022-04-01 10:30)
DX: Z12.11 Encounter for screening for malignant neoplasm of colon (principal)
CPT/HCPCS: 82962

== ENCOUNTER 2023-12-28 08:46 | Inpatient (IN) | payer OTHER ==
[2023-12-28 09:42] VITALS: BMI 25.7
[2023-12-28] MEDS ORDERED: ONDANSETRON 4 MG/2 ML VIAL ONE (10:03)
[2023-12-28] MEDS ORDERED: ACETAMINOPHEN INJECTION 100 ML ONE ×2 (10:03→19:51)
[2023-12-28] MEDS ORDERED: FAMOTIDINE 20 MG/50 ML IVPB 20 MG/50 ML MG IVPB ONE (10:04)
[2023-12-28] MEDS: ACETAMINOPHEN 1000 MG/100 ML BAG IVPB ONE (10:14)
[2023-12-28] MEDS: FAMOTIDINE 20 MG/50 ML IVPB 20 MG/50 ML MG IVPB ONE (10:14)
[2023-12-28] MEDS: ONDANSETRON 4 MG/2 ML VIAL IVPUSH ONE (10:14)
[2023-12-28] MEDS: SODIUM CHLORIDE 1,000 ML IV STA ×2 (10:21→11:50)
[2023-12-28 10:55] LABS: VENOUS BASE EXCESS 1.3 mmol/L (-2-2); VENOUS O2 SATURATION 35.4 % (70-80); VENOUS PCO2 43.1 mmHg (38-52); VENOUS PH 7.403 (7.310-7.410)
[2023-12-28 10:59] LABS: BASO % 0.6 % (0-2.0); LYMPH % 5.9 % (8-40); MCH 27.7 pg (25.7-33.7); MCHC 32.5 g/dl (32.0-35.9); MEAN CELL VOLUME 85.3 fl (80-96); MEAN PLT VOLUME 9.5 fl (7.5-11.1); NEUT % 83.5 % (42.8-82.8); PLATELET COUNT 271 10^3/uL (134-434); RBC 3.99 M/mm3 (4.00-5.60); RDW 13.6 % (11.9-15.9); WHITE BLOOD COUNT 15.2 K/mm3 (4.0-10.0)
[2023-12-28 11:02] LABS: INR 1.02 (0.83-1.09); PROTHROMBIN TIME (PATIENT) 11.7 SEC (9.7-13.0)
[2023-12-28 11:03] LABS: EPI CELLS >36 /uL (0-25.1); HYALINE CASTS 5 /uL (0-3.1); PH,URINE 5.5 (5.0-8.0); URINE APPEARANCE TURBID; URINE BILIRUBIN NEGATIVE (NEGATIVE); URINE COLOR YELLOW; URINE GLUCOSE (UA) 3+ (NEGATIVE); URINE KETONE 1+ (NEGATIVE); URINE LEUK ESTERASE NEGATIVE (NEGATIVE); URINE NITRITE NEGATIVE (NEGATIVE); URINE PROTEIN 3+ (NEGATIVE)
[2023-12-28 11:05] LABS: ACTIVATED PTT 34.4 SECONDS (25.2-36.5)
[2023-12-28 11:13] LABS: POTASSIUM 5.9 mmol/L (3.5-5.1)
[2023-12-28 11:15] LABS: ALBUMIN 2.8 g/dl (3.4-5.0); BLOOD UREA NITROGEN 41.2 mg/dL (7-18)
[2023-12-28 11:18] LABS: CREATININE 1.8 mg/dL (0.55-1.3)
[2023-12-28 11:20] LABS: BILIRUBIN,TOTAL 1.2 mg/dL (0.2-1); TOT PROT 7.7 g/dl (6.4-8.2)
[2023-12-28] MEDS ORDERED: CEFTRIAXONE 1 GM/50 ML BAG ONE (12:09)
[2023-12-28] MEDS ORDERED: AZITHROMYCIN IVPB 500 MG/250 ML BAG IVPB ONE (12:09)
[2023-12-28 12:10] LABS: URINE RBC 32 /uL (0-23.9)
[2023-12-28 12:11] LABS: URINE BACTERIA 4 /uL (0-1359); URINE WBC 367 /uL (0-25.8)
[2023-12-28] MEDS: CEFTRIAXONE 1,000 MG in DEXTROSE 5%-WATER - 50 ML IVPB ONE (12:21)
[2023-12-28] MEDS: AZITHROMYCIN IVPB 500 MG in DEXTROSE 5%-WATER - 250 ML IVPB ONE (13:06)
[2023-12-28 14:49] LABS: POTASSIUM 5.2 mmol/L (3.5-5.1)
[2023-12-28 14:51] LABS: BLOOD UREA NITROGEN 39.7 mg/dL (7-18)
[2023-12-28] MEDS ORDERED: ONDANSETRON 4 MG/2 ML VIAL IVPUSH PRN (14:51)
[2023-12-28] MEDS: chlorproMAZINE HCL 25 MG TABLET PO ONE (14:52)
[2023-12-28 14:54] LABS: CREATININE 1.6 mg/dL (0.55-1.3)
[2023-12-28] MEDS ORDERED: METOCLOPRAMIDE HCL INJECTION 10 MG/2 ML VIAL ONE (16:44)
[2023-12-28] MEDS ORDERED: PANTOPRAZOLE SODIUM 40 MG/100 ML BAG IVPB ONE (16:44)
[2023-12-28] MEDS: METOCLOPRAMIDE HCL INJECTION 10 MG/2 ML VIAL IVPUSH ONE (17:02)
[2023-12-28] MEDS: LACTATED RINGERS SOLUTION 1,000 ML/1,000 ML INFUS.BAG IV SCH (17:02)
[2023-12-28] MEDS: PANTOPRAZOLE SODIUM 40 MG VIAL IVPUSH SCH (17:02)
[2023-12-28] MEDS: INSULIN ASPART SLIDING SCALE (NOVOLOG) 1 VIAL SQ SCH (17:05)
[2023-12-28 17:10] LABS: BILIRUBIN,DIRECT 0.2 mg/dL (0.0-0.2)
[2023-12-28] MEDS: ACETAMINOPHEN 1000 MG/100 ML BAG IVPB PRN (20:02)
[2023-12-28] MEDS: HEPARIN NA (PORCINE) 5,000 UNITS/ML 1ML VIAL SQ SCH (21:08)
[2023-12-29] MEDS: METOCLOPRAMIDE HCL 10 MG TABLET (FP) PO ONE ×2 (00:36→20:44)
[2023-12-29] MEDS ORDERED: LACTATED RINGERS SOLUTION 1,000 ML/1,000 ML INFUS.BAG IV SCH (08:45)
[2023-12-29 10:05] LABS: BASO % 0.6 % (0-2.0); EOS % 0.2 % (0-4.5); HEMATOCRIT 28.7 % (35.4-49); HEMOGLOBIN 9.7 GM/dL (11.7-16.9); LYMPH % 10.4 % (8-40); MCH 28.3 pg (25.7-33.7); MCHC 33.7 g/dl (32.0-35.9); MEAN CELL VOLUME 83.9 fl (80-96); MONO % 10.5 % (3.8-10.2); NEUT % 78.3 % (42.8-82.8); PLATELET COUNT 294 10^3/uL (134-434); RBC 3.43 M/mm3 (4.00-5.60); RDW 13.7 % (11.9-15.9); WHITE BLOOD COUNT 12.2 K/mm3 (4.0-10.0)
[2023-12-29] MEDS: CEFTRIAXONE 1 GM in DEXTROSE 5%-WATER - 50 ML IVPB SCH (10:20)
[2023-12-29 10:25] LABS: POTASSIUM 4.4 mmol/L (3.5-5.1)
[2023-12-29 10:30] LABS: BLOOD UREA NITROGEN 34.1 mg/dL (7-18); CALCIUM 8.6 mg/dL (8.5-10.1)
[2023-12-29] MEDS: AZITHROMYCIN IVPB 500 MG/250 ML BAG IVPB SCH (10:30)
[2023-12-29 10:33] LABS: CREATININE 1.4 mg/dL (0.55-1.3)
[2023-12-29 10:39] LABS: ALBUMIN 2.5 g/dl (3.4-5.0)
[2023-12-29 10:42] LABS: BILIRUBIN,DIRECT 0.3 mg/dL (0.0-0.2)
[2023-12-29 10:44] LABS: BILIRUBIN,TOTAL 0.8 mg/dL (0.2-1); TOT PROT 6.7 g/dl (6.4-8.2)
[2023-12-29] MEDS: ASPIRIN 81 MG CHEWABLE TABLETS PO SCH (13:14)
[2023-12-29] MEDS: amLODIPine BESYLATE 5 MG TABLET (FP) PO SCH (13:14)
[2023-12-29] MEDS: LISINOPRIL 10 MG TABLET PO SCH (13:14)
[2023-12-29] MEDS: glipiZIDE 5 MG TABLET (FP) PO SCH (14:30)
[2023-12-29] MEDS: EMPAGLIFLOZIN (JARDIANCE) 10 MG TABLET PO SCH (15:10)
[2023-12-29] MEDS: INSULIN ASPART SLIDING SCALE (NOVOLOG) 1 VIAL SQ SCH (17:09)
[2023-12-29] MEDS: LACTATED RINGERS SOLUTION 1,000 ML/1,000 ML INFUS.BAG IV SCH (18:45)
[2023-12-29] MEDS ORDERED: ACETAMINOPHEN 325 MG TABLET (FP) PO PRN (18:59)
[2023-12-29] MEDS: IBUPROFEN 400 MG TABLET (FP) PO ONE (19:06)
[2023-12-29] MEDS: ATORVASTATIN CA 20 MG TABLET (FP) PO SCH (21:53)
[2023-12-30] MEDS: POLYETHYLENE GLYCOL (HEALTHYLAX) 3350 17 GM PACKET PO SCH (00:58)
[2023-12-30 09:05] LABS: HEMATOCRIT 29.6 % (35.4-49); HEMOGLOBIN 9.8 GM/dL (11.7-16.9); MCH 28.2 pg (25.7-33.7); MCHC 33.3 g/dl (32.0-35.9); MEAN CELL VOLUME 84.8 fl (80-96); MEAN PLT VOLUME 8.7 fl (7.5-11.1); PLATELET COUNT 340 10^3/uL (134-434); RBC 3.49 M/mm3 (4.00-5.60); RDW 13.8 % (11.9-15.9); WHITE BLOOD COUNT 8.3 K/mm3 (4.0-10.0)
[2023-12-30 09:27] LABS: CHLORIDE 101 mmol/L (98-107); POTASSIUM 4.3 mmol/L (3.5-5.1); SODIUM 135 mmol/L (136-145)
[2023-12-30 09:29] LABS: ALBUMIN 2.5 g/dl (3.4-5.0)
[2023-12-30 09:30] LABS: ANION GAP 10 mmol/L (4-13); BLOOD UREA NITROGEN 33.4 mg/dL (7-18); CALCIUM 8.5 mg/dL (8.5-10.1); CO2 24 mmol/L (21-32); GLUCOSE,RANDOM 235 mg/dL (74-106); MAGNESIUM 2.6 mg/dL (1.8-2.4)
[2023-12-30 09:32] LABS: SGPT/ALT 115 U/L (13-61)
[2023-12-30 09:33] LABS: CREATININE 1.3 mg/dL (0.55-1.3); PHOSPHOROUS 1.6 mg/dL (2.5-4.9); SGOT/AST 87 U/L (15-37)
[2023-12-30 09:34] LABS: BILIRUBIN,TOTAL 0.6 mg/dL (0.2-1); TOT PROT 6.7 g/dl (6.4-8.2); TOTAL IRON BINDING CAPACITY 203 ug/dL (250-450)
[2023-12-30 09:36] LABS: ALK PHOS 145 U/L (45-117)
[2023-12-30 09:43] LABS: IRON SERUM 43 ug/dL (50-175)
[2023-12-30 09:47] LABS: ALBUMIN 2.5 g/dl (3.4-5.0)
[2023-12-30 09:52] LABS: BILIRUBIN,DIRECT 0.3 mg/dL (0.0-0.2)
[2023-12-30 09:54] LABS: BILIRUBIN,TOTAL 0.7 mg/dL (0.2-1); TOT PROT 6.7 g/dl (6.4-8.2)
[2023-12-30] MEDS: ASPIRIN COATED 81 MG TABLET.EC PO SCH (10:45)
[2023-12-30] MEDS: MAG HYDROX/AL HYDROX/SIMETH 30 ML UNIT-DOSE CUP PO PRN (12:23)
[2023-12-30] MEDS: BISACODYL 5 MG TABLET.DR (FP) PO ONE (13:41)
[2023-12-30] MEDS: PIPERACILLIN/TAZOB 3.375 GM 3.375 GM in DEXTROSE 5%-WATER - 50 ML IVPB SCH (15:53)
[2023-12-30] MEDS ORDERED: MAG HYDROX/AL HYDROX/SIMETH 30 ML UNIT-DOSE CUP PO PRN (16:09)
[2023-12-30] MEDS ORDERED: NAPH,MB-DB/K PH,MBDB POWDER PACKET PO ONE (16:44)
[2023-12-30] MEDS: NAPH,MB-DB/K PH,MBDB POWDER PACKET PO ONE (18:54)
[2023-12-30] MEDS: INSULIN (LEVEMIR) 100 UNITS/ML UNITS SQ SCH (21:53)
[2023-12-31 10:53] LABS: HEMATOCRIT 29.5 % (35.4-49); HEMOGLOBIN 9.8 GM/dL (11.7-16.9); MCH 28.4 pg (25.7-33.7); MCHC 33.1 g/dl (32.0-35.9); MEAN CELL VOLUME 85.9 fl (80-96); MEAN PLT VOLUME 8.7 fl (7.5-11.1); PLATELET COUNT 373 10^3/uL (134-434); RBC 3.44 M/mm3 (4.00-5.60); RDW 14.1 % (11.9-15.9); WHITE BLOOD COUNT 6.6 K/mm3 (4.0-10.0)
[2023-12-31 11:11] LABS: POTASSIUM 4.6 mmol/L (3.5-5.1)
[2023-12-31 11:19] LABS: ALBUMIN 2.5 g/dl (3.4-5.0); CALCIUM 8.3 mg/dL (8.5-10.1)
[2023-12-31 11:20] LABS: BLOOD UREA NITROGEN 25.6 mg/dL (7-18); MAGNESIUM 2.7 mg/dL (1.8-2.4)
[2023-12-31 11:23] LABS: BILIRUBIN,TOTAL 0.8 mg/dL (0.2-1); CREATININE 1.2 mg/dL (0.55-1.3); PHOSPHOROUS 1.9 mg/dL (2.5-4.9)
[2023-12-31 11:24] LABS: TOT PROT 6.6 g/dl (6.4-8.2)
[2023-12-31] MEDS ORDERED: LORazepam 2 MG TABLET PO PRN (11:24)
[2023-12-31] MEDS ORDERED: LORazepam 1 MG TABLET PO PRN ×2 (11:29→20:30)
[2023-12-31] MEDS: CYCLOBENZAPRINE HCL 5 MG TABLET PO ONE (12:06)
[2023-12-31 13:09] LABS: PH,URINE 5.5 (5.0-8.0); URINE APPEARANCE CLEAR; URINE BILIRUBIN NEGATIVE (NEGATIVE); URINE COLOR YELLOW; URINE GLUCOSE (UA) 3+ (NEGATIVE); URINE KETONE NEGATIVE (NEGATIVE); URINE LEUK ESTERASE NEGATIVE (NEGATIVE); URINE NITRITE NEGATIVE (NEGATIVE); URINE PROTEIN TRACE (NEGATIVE)
[2023-12-31] MEDS ORDERED: NAPH,MB-DB/K PH,MBDB POWDER PACKET PO ONE (19:00)
[2023-12-31] MEDS: NAPH,MB-DB/K PH,MBDB POWDER PACKET PO ONE (21:47)
[2023-12-31] MEDS: INSULIN (LEVEMIR) 100 UNITS/ML UNITS SQ SCH (21:50)
[2023-12-31] MEDS ORDERED: INSULIN (LEVEMIR) 100 UNITS/ML UNITS SQ SCH (22:00)
[2024-01-01] MEDS: INSULIN (NOVOLOG) ASPART 100 UNITS/ML 10ML VIAL SQ SCH (06:09)
[2024-01-01] MEDS ORDERED: INSULIN (NOVOLOG) ASPART 100 UNITS/ML 10ML VIAL SQ SCH (07:00)
[2024-01-01 10:20] LABS: HEMATOCRIT 29.4 % (35.4-49); HEMOGLOBIN 9.4 GM/dL (11.7-16.9); MEAN CELL VOLUME 87.4 fl (80-96); MEAN PLT VOLUME 8.5 fl (7.5-11.1); PLATELET COUNT 463 10^3/uL (134-434); RBC 3.37 M/mm3 (4.00-5.60); WHITE BLOOD COUNT 8.3 K/mm3 (4.0-10.0)
[2024-01-01 10:31] LABS: POTASSIUM 4.7 mmol/L (3.5-5.1)
[2024-01-01 10:41] LABS: ALBUMIN 2.5 g/dl (3.4-5.0); CALCIUM 8.7 mg/dL (8.5-10.1)
[2024-01-01 10:42] LABS: BLOOD UREA NITROGEN 20.7 mg/dL (7-18); MAGNESIUM 2.5 mg/dL (1.8-2.4)
[2024-01-01 10:45] LABS: CREATININE 1.1 mg/dL (0.55-1.3); PHOSPHOROUS 2.5 mg/dL (2.5-4.9)
[2024-01-01 10:46] LABS: BILIRUBIN,TOTAL 0.4 mg/dL (0.2-1); TOT PROT 6.8 g/dl (6.4-8.2)
[2024-01-02] MEDS: LISINOPRIL 20 MG TABLET PO SCH (09:26)
[2024-01-03 09:51] VITALS: BP 144/85; PULSE 77; RESP 17; TEMP 98.8
[2024-01-03] MEDS ORDERED: INSULIN ASPART SLIDING SCALE (NOVOLOG) 1 VIAL SQ ONE (11:24)
== END 2024-01-03 13:00 | disposition home or self-care (01) | DRG 720 ==
LOC: JER 08:46 → JERBED 14:33 → J6S 20:25
PROVIDERS: ADMIT Internal Medicine; ATTEND Internal Medicine
DX: A41.9 Sepsis, unspecified organism (principal); J69.0 Pneumonitis due to inhalation of food and vomit; N17.9 Acute kidney failure, unspecified; E87.1 Hypo-osmolality and hyponatremia; E11.65 Type 2 diabetes mellitus with hyperglycemia; E86.0 Dehydration; I10 Essential (primary) hypertension; I89.9 Noninfective disorder of lymphatic vessels and lymph nodes, unspecified; R11.2 Nausea with vomiting, unspecified; R74.01 Elevation of levels of liver transaminase levels; E78.5 Hyperlipidemia, unspecified
CPT/HCPCS: 0241U-QW; 36415; 71045-TC-FY; 74176-TC; 74181-TC; 76705-TC; 80048; 80053; 80076; 81003; 82248; 82533; 82550; 82553; 82607; 82728; 82746; 82803; 82962; 82977; 83036; 83540; 83550; 83605; 83690; 83735; 84100; 84153; 84443; 84484; 85025; 85027; 85045; 85610; 85651; 85730; 86140; 86704; 86705; 86708; 86709; 86803; 86850; 86900; 86901; 87040; 87086; 87340; 87517; 87899; 93005; 93010; 99285-25; J0131; J1644

== ENCOUNTER 2024-08-02 11:59 | Emergency (ER) | payer OTHER ==
[2024-08-02 12:52] VITALS: TEMP 98.4; BMI 21.8
[2024-08-02] MEDS ORDERED: ACETAMINOPHEN 325 MG TABLET (FP) ONE (13:23)
[2024-08-02] MEDS ORDERED: LIDOCAINE 4% PATCH TP ONE (13:23)
[2024-08-02] MEDS: LIDOCAINE 4% PATCH TP ONE (13:47)
[2024-08-02] MEDS: ACETAMINOPHEN 500 MG TABLET (FP) PO ONE (13:47)
[2024-08-02 13:49] LABS: MCHC 31.8 g/dl (32.3-36.5); MEAN CELL VOLUME 89.6 fl (79.0-92.2); MEAN PLT VOLUME 10.9 fl (9.4-12.4); PLATELET COUNT 224 x10^3/uL (163-337); RDW 12.5 % (12.2-16.4)
[2024-08-02 13:59] LABS: INR 0.88 (0.83-1.09); PROTHROMBIN TIME (PATIENT) 9.7 SEC (9.7-13.0)
[2024-08-02 14:10] LABS: POTASSIUM 4.7 mmol/L (3.5-5.1)
[2024-08-02 14:13] LABS: BLOOD UREA NITROGEN 19.7 mg/dL (7-18); CALCIUM 10.4 mg/dL (8.5-10.1); MAGNESIUM 2.2 mg/dL (1.8-2.4)
[2024-08-02 14:14] LABS: ALBUMIN 4.1 g/dl (3.4-5.0)
[2024-08-02 14:16] LABS: CREATININE 1.3 mg/dL (0.55-1.3)
[2024-08-02 14:18] LABS: BILIRUBIN,TOTAL 0.3 mg/dL (0.2-1)
[2024-08-02 15:17] LABS: HCV DIAGNOSTIC IN-HOUSE W/RFLX NON-REACTIVE (NONREACTIVE)
[2024-08-02 15:18] LABS: HIV INTERPRETATION NEGATIVE (NEGATIVE)
[2024-08-02 17:55] VITALS: BP 146/76; PULSE 69; RESP 17
[2024-08-02] MEDS ORDERED: LIDOCAINE PATCH REMOVAL MC SCH (22:00)
== END 2024-08-02 17:54 | disposition home or self-care (01) ==
LOC: JER 11:59
DX: R07.2 Precordial pain (principal); M54.2 Cervicalgia; R05.9 Cough, unspecified; X50.1XXA Overexertion from prolonged static or awkward postures, initial encounter; Y93.B9 Activity, other involving muscle strengthening exercises
CPT/HCPCS: 0241U-QW; 36415; 71046-TC-FY; 80053; 83735; 84484; 85027; 85610; 85730; 86803; 87389; 93005; 93010; 99285-25